=== PATIENT | male | born 1950 | race Caucasian/White ===

== ENCOUNTER → 2018-08-19 10:05 | Outpatient (CLI) | payer MEDICARE, OTHER, SELFPAY ==
[2018-08-19 11:47] LABS: Add Manual Diff / Slide Review NO; Basophils Percent Auto 1.2 % (0-2); Eosinophils Percent Auto 2.7 % (2-4); Hematocrit 44.6 % (41-53); Hemoglobin 15.4 g/dL (13.5-17.5); Lymphocytes Percent Auto 27.2 % (25-40); Mean Corpuscular HGB Conc 34.4 % (30-36); Mean Corpuscular Hemoglobin 31.6 PG (26-34); Mean Corpuscular Volume 91.7 fL (80-100); Monocytes Percent Auto 8.2 % (3-14); Neutrophils Absolute Auto 3100 /uL (3000-5900); Neutrophils Percent Auto 60.7 % (50-75); Platelet Count 304 X10^3/uL (150-400); Red Blood Cell Count 4.87 X10^6/uL (4.5-5.9); Red Cell Distribution Width 12.9 % (11.6-14.8); White Blood Cell Count 5.1 X10^3/uL (4.5-11.0)
[2018-08-19 12:26] LABS: HEMOLYSIS < 15 (0-50)
[2018-08-19 12:35] LABS: Alanine Aminotransferase 27 IU/L (21-72); Albumin 4.4 g/dL (3.5-5.0); Albumin Globulin Ratio 1.6 (1.0-2.8); Alkaline Phosphatase 66 U/L (38-126); Aspartate Aminotransferase 26 IU/L (17-59); BUN Creatinine Ratio 16.3 (6-22); Bilirubin Total 1.1 mg/dL (0.2-1.3); Blood Urea Nitrogen 13 mg/dL (9-20); Calcium 8.7 mg/dL (8.4-10.2); Carbon Dioxide 30 mmol/L (22-32); Chloride 101 mmol/L (98-107); Cholesterol 142 mg/dL (140-199); Estimated Glomerular Filt Rate > 60.0 mL/min (>60); Globulin 2.7 g/dL (1.7-4.1); Glucose 98 mg/dL (80-110); HDL Cholesterol 47 mg/dL (40-60); LDL Cholesterol Calculated 84 mg/dL (<100); Potassium 4.2 mmol/L (3.4-5.1); Sodium 140 mmol/L (137-145); Total Protein 7.1 g/dL (6.3-8.2); Triglycerides 57 mg/dL (35-150)
[2018-08-19 13:07] LABS: TSH w/ Reflex to FT4 1.92 uIU/mL (0.47-4.68)
[2018-08-19 19:16] LABS: Prostate Specific Antigen Scrn 0.846 ng/mL (0.1-4.0)
== END ==
PROVIDERS: PCP Family Medicine; Visit Provider Family Medicine
DX: E78.2 Mixed hyperlipidemia (principal); I10 Essential (primary) hypertension; Z12.5 Encounter for screening for malignant neoplasm of prostate
CPT/HCPCS: 36415; 80053; 80061; 84443; 85025; G0103

== ENCOUNTER → 2019-09-04 06:55 | Outpatient (CLI) | payer MEDICARE, OTHER, SELFPAY ==
[2019-09-04 08:02] LABS: Add Manual Diff / Slide Review NO; Basophils Absolute Auto 100 /uL (0-100); Basophils Percent Auto 1.1 % (0-2); Eosinophils Absolute Auto 200 /uL (0-450); Eosinophils Percent Auto 3.7 % (2-4); Hematocrit 44.1 % (41-53); Hemoglobin 15.1 g/dL (13.5-17.5); Lymphocytes Absolute Auto 1500 /uL (1100-4500); Lymphocytes Percent Auto 30.4 % (25-40); Mean Corpuscular HGB Conc 34.2 % (30-36); Mean Corpuscular Hemoglobin 31.3 PG (26-34); Mean Corpuscular Volume 91.5 fL (80-100); Monocytes Absolute Auto 400 /uL (0-900); Monocytes Percent Auto 7.6 % (3-14); Neutrophils Absolute Auto 2700 /uL (1500-7000); Neutrophils Percent Auto 57.2 % (50-75); Platelet Count 320 X10^3/uL (150-400); Red Blood Cell Count 4.82 X10^6/uL (4.5-5.9); White Blood Cell Count 4.8 X10^3/uL (4.5-11.0)
[2019-09-04 08:20] LABS: Alanine Aminotransferase 28 IU/L (<50); Albumin 4.4 g/dL (3.5-5.0); Albumin Globulin Ratio 1.7 (1.0-2.8); Alkaline Phosphatase 73 U/L (38-126); Aspartate Aminotransferase 32 IU/L (17-59); BUN Creatinine Ratio 12.2 (6-22); Bilirubin Total 1.3 mg/dL (0.2-1.3); Blood Urea Nitrogen 11 mg/dL (9-20); Calcium 9.2 mg/dL (8.4-10.2); Carbon Dioxide 29 mmol/L (22-32); Chloride 104 mmol/L (98-107); Cholesterol 147 mg/dL (140-199); Estimated Glomerular Filt Rate > 60.0 mL/min (>60); Globulin 2.6 g/dL (1.7-4.1); Glucose 112 mg/dL (80-110); HDL Cholesterol 48 mg/dL (40-60); HEMOLYSIS < 15 (0-50); LDL Cholesterol Calculated 80 mg/dL (<100); Sodium 141 mmol/L (137-145); Triglycerides 94 mg/dL (35-150)
[2019-09-04 08:50] LABS: Prostate Specific Antigen Scrn 1.16 ng/mL (0.1-4.0)
== END ==
PROVIDERS: PCP Family Medicine; Visit Provider Family Medicine
DX: Z12.5 Encounter for screening for malignant neoplasm of prostate (principal); E78.2 Mixed hyperlipidemia; I10 Essential (primary) hypertension
CPT/HCPCS: 36415; 80053; 80061; 84443; 85025; G0103

== ENCOUNTER → 2021-01-22 08:02 | Outpatient (CLI) | payer MEDICARE, OTHER, SELFPAY ==
[2021-01-22 10:01] LABS: Add Manual Diff / Slide Review NO; Basophils Absolute Auto 100 /uL (0-100); Basophils Percent Auto 1.1 % (0-2); Eosinophils Absolute Auto 200 /uL (0-450); Eosinophils Percent Auto 4.1 % (2-4); Hematocrit 40.5 % (41-53); Hemoglobin 14.1 g/dL (13.5-17.5); Lymphocytes Absolute Auto 1300 /uL (1100-4500); Lymphocytes Percent Auto 28.5 % (25-40); Mean Corpuscular HGB Conc 34.8 % (30-36); Mean Corpuscular Hemoglobin 31.5 PG (26-34); Mean Corpuscular Volume 90.6 fL (80-100); Monocytes Absolute Auto 400 /uL (0-900); Monocytes Percent Auto 7.7 % (3-14); Neutrophils Absolute Auto 2700 /uL (1500-7000); Neutrophils Percent Auto 58.6 % (50-75); Platelet Count 266 X10^3/uL (150-400); Red Blood Cell Count 4.48 X10^6/uL (4.5-5.9); White Blood Cell Count 4.6 X10^3/uL (4.5-11.0)
[2021-01-22 10:13] LABS: Alanine Aminotransferase 18 IU/L (<50); Albumin 3.7 g/dL (3.5-5.0); Albumin Globulin Ratio 1.5 (1.0-2.8); Alkaline Phosphatase 68 U/L (38-126); Aspartate Aminotransferase 26 IU/L (17-59); BUN Creatinine Ratio 18.4 (6-22); Bilirubin Total 0.7 mg/dL (0.2-1.3); Blood Urea Nitrogen 14 mg/dL (9-20); Calcium 9.1 mg/dL (8.4-10.2); Carbon Dioxide 26 mmol/L (22-32); Chloride 104 mmol/L (98-107); Cholesterol 134 mg/dL (140-199); Estimated Glomerular Filt Rate > 60.0 mL/min (>60); Globulin 2.5 g/dL (1.7-4.1); Glucose 99 mg/dL (80-110); HDL Cholesterol 58 mg/dL (40-60); HEMOLYSIS < 15 (0-50); LDL Cholesterol Calculated 67 mg/dL (<100); Potassium 4.3 mmol/L (3.4-5.1); Sodium 137 mmol/L (137-145); Total Protein 6.2 g/dL (6.3-8.2); Triglycerides 47 mg/dL (35-150)
[2021-01-22 10:43] LABS: Prostate Specific Antigen 1.48 ng/mL (0.10-4.00); TSH w/ Reflex to FT4 1.75 uIU/mL (0.47-4.68)
== END ==
PROVIDERS: PCP Family Medicine; Referring Provider Family Medicine; Visit Provider Family Medicine
DX: E78.2 Mixed hyperlipidemia (principal); I10 Essential (primary) hypertension
CPT/HCPCS: 36415; 80053; 80061; 84153; 84443; 85025

== ENCOUNTER → 2022-07-10 08:35 | Outpatient (CLI) | payer MEDICARE, OTHER, SELFPAY ==
[2022-07-10 09:45] LABS: Add Manual Diff / Slide Review NO; Basophils Absolute Auto 0 /uL (0-100); Basophils Percent Auto 1.1 % (0-2); Eosinophils Absolute Auto 100 /uL (0-450); Eosinophils Percent Auto 3.6 % (2-4); Hematocrit 41.4 % (41-53); Hemoglobin 14.7 g/dL (13.5-17.5); Lymphocytes Absolute Auto 1000 /uL (1100-4500); Lymphocytes Percent Auto 26.3 % (25-40); Mean Corpuscular HGB Conc 35.6 % (30-36); Mean Corpuscular Hemoglobin 31.5 PG (26-34); Mean Corpuscular Volume 88.6 fL (80-100); Monocytes Absolute Auto 300 /uL (0-900); Neutrophils Absolute Auto 2400 /uL (1500-7000); Platelet Count 322 X10^3/uL (150-400); Red Blood Cell Count 4.68 X10^6/uL (4.5-5.9); Red Cell Distribution Width 13.2 % (11.6-14.8)
[2022-07-10 11:02] LABS: Alanine Aminotransferase 15 IU/L (<50); Albumin 4.3 g/dL (3.5-5.0); Albumin Globulin Ratio 1.6 (1.0-2.8); Alkaline Phosphatase 71 U/L (38-126); Aspartate Aminotransferase 22 IU/L (17-59); BUN Creatinine Ratio 16.5 (6-22); Blood Urea Nitrogen 13 mg/dL (9-20); Calcium 9.2 mg/dL (8.4-10.2); Carbon Dioxide 30 mmol/L (22-32); Chloride 100 mmol/L (98-107); Cholesterol 185 mg/dL (140-199); Estimated Glomerular Filt Rate > 60 mL/min (>60); Globulin 2.7 g/dL (1.7-4.1); Glucose 102 mg/dL (80-110); HDL Cholesterol 49 mg/dL (40-60); HEMOLYSIS < 15 (0-50); LDL Cholesterol Calculated 122 mg/dL (<100); Potassium 4.6 mmol/L (3.4-5.1); Sodium 138 mmol/L (137-145); Triglycerides 72 mg/dL (35-150)
[2022-07-10 11:29] LABS: Prostate Specific Antigen Scrn 1.54 ng/mL (0.1-4.0)
[2022-07-10 11:43] LABS: TSH w/ Reflex to FT4 1.55 uIU/mL (0.47-4.68)
== END ==
PROVIDERS: PCP Family Medicine; Referring Provider Family Medicine; Visit Provider Family Medicine
DX: E78.2 Mixed hyperlipidemia (principal); I10 Essential (primary) hypertension; Z12.5 Encounter for screening for malignant neoplasm of prostate
CPT/HCPCS: 36415; 80053; 80061; 81241; 84443; 85025; G0103

== ENCOUNTER → 2022-07-20 09:43 | Outpatient (CLI) | payer MEDICARE, OTHER, SELFPAY ==
[2022-07-20 12:14] LABS: COVID19 -Nasal RAPID Negative (Negative)
== END ==
PROVIDERS: PCP Family Medicine; Visit Provider Surgery
DX: Z20.822 Contact with and (suspected) exposure to COVID-19 (principal); Z01.812 Encounter for preprocedural laboratory examination
CPT/HCPCS: 87635; C9803

== ENCOUNTER 2022-07-21 09:48 | Day surgery (SDC) | payer MEDICARE, OTHER, SELFPAY ==
--- NOTE | 2022-07-21 | PATH_ITS ---
[facility] Accession Number: [id number] No. of containers..02 Tissue . 01 Material submitted: . PART A: cecum - CECAL POLYPS X2 PART B: colon - ASCENDING COLON POLYP . 01 Diagnosis: A. Cecum, Polyps x2, Biopsy: Tubular adenoma. Sessile serrated adenoma. . B. Ascending Colon, Polyp, Biopsy: Tubular adenoma in two of four fragments. Sessile serrated adenoma, one fragment. MRV 07/26/2022 1040 Local . 01 Electronically signed: . Yoli Hayes MD, Pathologist NPI- [id number] . 01 Gross description: . Part A: CECAL POLYPS X2: Received in formalin are 2 fragment(s) of story, soft tissue measuring 0.1 x 0.1 x 0.1 cm to 0.2 x 0.2 x 0.2 cm submitted entirely in 1 cassette(s) Part B: ASCENDING COLON POLYP: Received in formalin are 3 fragment(s) of story, soft tissue measuring 0.3 x 0.3 x 0.2 cm to 0.4 x 0.4 x 0.2 cm submitted entirely in 1 cassette(s) /ELISA 07/24/2022 1838 Local . 01 Pathologist provided ICD-10: D12.0, D12.6 . 01 CPT . 242920, 980501 Specimen Comment: A courtesy copy of this report has been sent to [facility] Performed at: 01 [facility] [address] [place] [id number] MD Loy Wakefield MD Phone: [phone]
[2022-07-21 10:15] VITALS: BP 146/80; PULSE 71; RESP 16; TEMP 36.3; O2SAT 99; BMI 24.6
[2022-07-21] MEDS: LACTATED RINGERS 1,000 ML 42 ML IV (10:40)
--- NOTE | 2022-07-21 11:20 | PM.HP.1 ---
History of Present Illness History of Present Illness Chief complaint: SCREENING COLONOSCOPY W/POSS BX Narrative: Mr. Valentine presents for screening colonoscopy he had a scope here 5 years ago there was a benign polyp and they were recommending 5 year follow-up for that. Since then he has had no bleeding no diarrhea constipation. He has no family history of colon cancer has never had trouble with anesthesia. He did have hemorrhoid banding following his last colonoscoped and that went well he has not had any symptoms of bleeding or protruding from his hemorrhoids since the procedure. He is allergic to penicillin unsure of the reaction but has been lifting that since he was trialed. He had an appendectomy in 2002 overall the prep went well Patient History Medical History (Updated 07/21/22 @ 11:30 by Elena Parry MD) Chicken pox Hemorrhoid (~1970) Hyperlipidemia Hypertension (~2004) Rosacea Surgical History Anesthesia History of elbow surgery (~1967) History of mandibular surgery (~1964) History of vasectomy Status post appendectomy (~2003) Family & Social History Family History (Updated 07/28/15 @ 00:00 by Conversion Provider) Brother Age: 67 Hypertension Mental health problem Father Congestive heart failure Hypertension Mother Stroke Brother No problems noted. Social History: household members spouse Tobacco & Substance use: Tobacco type cigarettes Smoking Status Former smoker alcohol intake current alcohol intake frequency holiday/special occasion Substance Use Type does not use Meds Home Medications and Allergies Home Medications Medication Instructions Recorded Confirmed Type ASPIRIN (Aspirin) 81 mg PO ##0 10/12/11 12/16/21 History Coenzyme Q10 (#CO Q10) 30 mg PO ##0 10/12/11 12/16/21 History minoxidil 2.5 mg tablet 2.5 mg PO DAILY #30 tabs 05/25/22 07/21/22 Rx atorvastatin 20 mg tablet See Rx Instructions .Route 05/29/22 07/21/22 Rx .COMPLEX #90 tabs hydrochlorothiazide 12.5 mg tablet See Rx Instructions .Route 05/29/22 07/21/22 Rx .COMPLEX #90 tabs losartan 50 mg tablet See Rx Instructions .Route 05/29/22 07/21/22 Rx .COMPLEX #180 tabs tadalafil 20 mg tablet See Rx Instructions .Route 05/29/22 07/21/22 Rx .COMPLEX #10 tabs sodium,potassium,mag sulfates 17.5 See Rx Instructions PO .COMPLEX 07/06/22 Rx gram-3.13 gram-1.6 gram oral soln #354 mL (Suprep Bowel Prep Kit) Allergies Allergy/AdvReac Type Severity Reaction Status Date / Time adhesive tape [ADHESIVE TAPE] Allergy Mild skin Verified 07/21/22 10:06 blistering lisinopril [LISINOPRIL] Allergy Mild cough Verified 07/21/22 10:06 Penicillins [PENICILLINS] Allergy Mild childhood Verified 07/21/22 10:06 Exam Vital Signs (past 8 hours): - 07/21/22 10:15 Temperature 97.4 F L Pulse Rate 71 Respiratory Rate 16 Blood Pressure 146/80 H Pulse Oximetry 99 Oxygen Delivery Method Room Air Oxygen Delivery Method Room Air Const General: cooperative, healthy appearing and comfortable HENMT Head: normal to inspection Resp Effort & Inspection: normal respiratory effort and able to speak in complete sentences Cardio Pulses: radial pulses present GI Inspection: normal to inspection and scar (Right lower quadrant) Palpation: No tender Skin General: no rashes or lesions noted Extrem General: normal to inspection Assessment & Plan Assessment and plan (1) Colon cancer screening: Status: Acute Plan I discussed the risks benefits and alternatives of a screening colonoscopy patient fully understood had an opportunity to ask questions and would like to proceed. Time Spent With Patient Critical Care time: I spent a total of [] minutes of critical care time on this patient's care today; this time is exclusive of procedural time.
[2022-07-21] MEDS: MIDAZOLAM 5 MG/5 ML VIAL 10 MG IV (12:08)
[2022-07-21] MEDS: fentaNYL 100 MCG/2 ML INJ 200 MCG IV (12:08)
[2022-07-21] MEDS: MIDAZOLAM 5 MG/5 ML VIAL 2 MG IV (12:25)
--- NOTE | 2022-07-21 12:47 | PM.OP.COLON ---
Procedure & Clinicians Study performed: Colonoscopy and polypectomy Same procedure as scheduled: Yes Indications: Colon cancer screening Surgeon: Elena Parry Procedure Notes Procedure in detail: Patient was taken to the endoscopy room and placed in a left lateral decubitus position. Time-out was performed. Digital rectal exam and external rectal exam were normal. A total of 10 mg of Versed and 200 of fentanyl were given during the procedure for conscious sedation. The patient had a very long colon and advancing it into the cecum took some extra time. Photograph was taken of the appendiceal orifice. In addition there were 2 very small less than 1 cm polyps around the appendiceal orifice which were biopsied. On withdrawal there was a 3rd larger maybe 1 cm sized polyp that was removed with a snare in the ascending colon. Therefore 2 specimens were sent 1. Cecal polyps x2 and 2. Ascending colon polyp. The withdrawal time total was 40 minutes because of the 2 polypectomies. There were no other pathology seen and no internal hemorrhoids on retroflexion. Complications: none Post-procedure Recommendations: Colonoscopy in 3 years
[2022-07-21 12:52] VITALS: BP 110/77; PULSE 67; RESP 16; TEMP 36.4; O2SAT 98
[2022-07-21 12:57] VITALS: BP 113/83; PULSE 67; RESP 13; O2SAT 98
[2022-07-21 13:02] VITALS: BP 116/83; PULSE 64; RESP 15; O2SAT 98
[2022-07-21 13:07] VITALS: BP 120/81; PULSE 18; RESP 15; O2SAT 98
== END 2022-07-21 13:42 | disposition home or self-care (01) ==
PROVIDERS: PCP Family Medicine; Referring Provider Surgery; Visit Provider Surgery
PROC: 0DJD8ZZ Inspection of Lower Intestinal Tract, Via Natural or Artificial Opening Endoscopic (ICD-10-PCS; CPT 45378; principal; 2022-07-21 10:45)
DX: Z12.11 Encounter for screening for malignant neoplasm of colon (principal); Z86.010 Personal history of colon polyps; D12.0 Benign neoplasm of cecum; D12.2 Benign neoplasm of ascending colon
CPT/HCPCS: 45385; 45380; J2250; J3010

== ENCOUNTER → 2023-08-11 08:25 | Outpatient (CLI) | payer MEDICARE, OTHER, SELFPAY ==
[2023-08-11 08:43] LABS: Add Manual Diff / Slide Review NO; Basophils Absolute Auto 100 /uL (0-100); Basophils Percent Auto 1.2 % (0-2); Eosinophils Absolute Auto 100 /uL (0-450); Eosinophils Percent Auto 2.4 % (2-4); Hematocrit 43.7 % (41-53); Hemoglobin 15.3 g/dL (13.5-17.5); Lymphocytes Absolute Auto 1500 /uL (1100-4500); Lymphocytes Percent Auto 29.1 % (25-40); Mean Corpuscular Hemoglobin 30.6 PG (26-34); Mean Corpuscular Volume 87.4 fL (80-100); Monocytes Absolute Auto 500 /uL (0-900); Monocytes Percent Auto 8.5 % (3-14); Neutrophils Absolute Auto 3100 /uL (1500-7000); Neutrophils Percent Auto 58.8 % (50-75); Platelet Count 356 X10^3/uL (150-400); Red Cell Distribution Width 13.2 % (11.6-14.8); White Blood Cell Count 5.3 X10^3/uL (4.5-11.0)
[2023-08-11 09:02] LABS: Alanine Aminotransferase 24 IU/L (<50); Albumin 4.1 g/dL (3.5-5.0); Albumin Globulin Ratio 1.5 (1.0-2.8); Alkaline Phosphatase 58 U/L (38-126); Aspartate Aminotransferase 26 IU/L (17-59); BUN Creatinine Ratio 15.3 (6-22); Bilirubin Total 1.1 mg/dL (0.2-1.3); Blood Urea Nitrogen 13 mg/dL (9-20); Calcium 9.5 mg/dL (8.4-10.2); Carbon Dioxide 29 mmol/L (22-32); Chloride 96 mmol/L (98-107); Cholesterol 151 mg/dL (140-199); Estimated Glomerular Filt Rate > 60 mL/min (>60); Globulin 2.7 g/dL (1.7-4.1); Glucose 109 mg/dL (80-110); HDL Cholesterol 51 mg/dL (40-60); HEMOLYSIS < 15 (0-50); LDL Cholesterol Calculated 85 mg/dL (<100); Potassium 3.9 mmol/L (3.4-5.1); Sodium 133 mmol/L (137-145); Total Protein 6.8 g/dL (6.3-8.2); Triglycerides 73 mg/dL (35-150)
[2023-08-11 09:31] LABS: Prostate Specific Antigen 1.79 ng/mL (0.10-4.00)
[2023-08-11 10:20] LABS: TSH w/ Reflex to FT4 1.46 uIU/mL (0.47-4.68)
== END ==
PROVIDERS: PCP Family Medicine; Referring Provider Family Medicine; Visit Provider Family Medicine
DX: E78.2 Mixed hyperlipidemia (principal); R35.1 Nocturia; I10 Essential (primary) hypertension
CPT/HCPCS: 36415; 80053; 80061; 84153; 84443; 85025

== ENCOUNTER → 2024-03-27 16:37 | Outpatient (CLI) | payer MEDICARE, OTHER, SELFPAY ==
--- NOTE | 2024-03-27 16:39 | DI.RAD.S_ITS ---
PROCEDURE: XR HIP W PEL IF DONE RT 2V INDICATIONS: pain TECHNIQUE: 2 views of the hip were acquired. COMPARISON: None. FINDINGS: Bones: No fractures or dislocations. No suspicious bony lesions. The visualized pelvic ring appears intact. Bilateral moderate acetabular joint space narrowing with subchondral sclerosis. Femoral head maintains an appropriate contour. Soft tissues: No suspicious soft tissue calcifications or masses. IMPRESSION: [id number] bilateral hip osteoarthritis. Approved by: Jalil Suh M.D. on 03/28/2024 at 18:25
--- NOTE | 2024-03-27 16:39 | DI.RAD.S_ITS ---
PROCEDURE: XR LUMBAR SPINE 2-3V INDICATIONS: pain TECHNIQUE: 3 views of the lumbar spine were acquired. COMPARISON: None. FINDINGS: Bones: 5 [id number] vertebrae are present. There is normal bony alignment. No vertebral body compression fractures. No suspicious bony lesions. Lower lumbar spine disc space narrowing with hypertrophic facet joints present. Mild convex right scoliotic curvature. Moderate fecal debris throughout the colon. Atherosclerotic calcification in the abdominal aorta without evidence of aneurysm Soft tissues: Overlying bowel gas pattern is normal. No suspicious soft tissue calcifications. IMPRESSION: Degenerative disc disease and arthropathy in the lower lumbar spine Approved by: Jalil Suh M.D. on 03/28/2024 at 18:23
--- NOTE | 2024-03-27 16:39 | DI.RAD.S_ITS ---
PROCEDURE: XR KNEE LT 3V INDICATIONS: pain TECHNIQUE: 3 views of the knee were acquired. COMPARISON: None. FINDINGS: Bones: No fractures or dislocations. No suspicious bony lesions. Patellar superior enthesophytes noted. Soft tissues: No joint effusion. No suspicious soft tissue calcifications. IMPRESSION: Degenerative patellar enthesophyte Approved by: Jalil Suh M.D. on 03/28/2024 at 18:22
== END ==
PROVIDERS: PCP Family Medicine; Referring Provider Family Medicine; Visit Provider Family Medicine
DX: M51.36 Other intervertebral disc degeneration, lumbar region (principal); M47.816 Spondylosis without myelopathy or radiculopathy, lumbar region; M16.0 Bilateral primary osteoarthritis of hip; M77.8 Other enthesopathies, not elsewhere classified; M25.551 Pain in right hip; M25.562 Pain in left knee; M54.50 Low back pain, unspecified
CPT/HCPCS: 72100; 73502; 73562

== ENCOUNTER → 2024-03-31 13:27 | Outpatient (CLI) | payer MEDICARE, OTHER, SELFPAY ==
[2024-03-31 14:29] LABS: BUN Creatinine Ratio 17.6 (6-22); Blood Urea Nitrogen 12 mg/dL (9-20); Estimated Glomerular Filt Rate > 60 mL/min (>60)
== END ==
PROVIDERS: PCP Family Medicine; Referring Provider Family Medicine; Visit Provider Family Medicine
DX: E78.5 Hyperlipidemia, unspecified (principal); I10 Essential (primary) hypertension; Z13.220 Encounter for screening for lipoid disorders
CPT/HCPCS: 36415; 82565; 84520

== ENCOUNTER → 2024-09-27 07:40 | Outpatient (CLI) | payer MEDICARE, OTHER, SELFPAY ==
[2024-09-27 09:02] LABS: Add Manual Diff / Slide Review NO; Basophils Absolute Auto 100 /uL (0-100); Basophils Percent Auto 1.5 % (0-2); Eosinophils Absolute Auto 300 /uL (0-450); Eosinophils Percent Auto 5.3 % (2-4); Hematocrit 42.5 % (41-53); Hemoglobin 14.9 g/dL (13.5-17.5); Lymphocytes Absolute Auto 1500 /uL (1100-4500); Lymphocytes Percent Auto 28.2 % (25-40); Mean Corpuscular Hemoglobin 31.2 PG (26-34); Monocytes Absolute Auto 400 /uL (0-900); Monocytes Percent Auto 7.2 % (3-14); Neutrophils Absolute Auto 3000 /uL (1500-7000); Neutrophils Percent Auto 57.8 % (50-75); Platelet Count 328 X10^3/uL (150-400); Red Blood Cell Count 4.77 X10^6/uL (4.5-5.9); Red Cell Distribution Width 13.2 % (11.6-14.8); White Blood Cell Count 5.2 X10^3/uL (4.5-11.0)
[2024-09-27 09:11] LABS: Hemoglobin A1C% w Est Avg Glu 5.5 % (4.0-6.0)
[2024-09-27 09:14] LABS: Alanine Aminotransferase 26 IU/L (<50); Albumin 4.1 g/dL (3.5-5.0); Albumin Globulin Ratio 1.8 (1.0-2.8); Alkaline Phosphatase 66 U/L (38-126); Aspartate Aminotransferase 31 IU/L (17-59); BUN Creatinine Ratio 17.6 (6-22); Bilirubin Total 0.8 mg/dL (0.2-1.3); Blood Urea Nitrogen 15 mg/dL (9-20); Calcium 9.3 mg/dL (8.4-10.2); Carbon Dioxide 31 mmol/L (22-32); Chloride 97 mmol/L (98-107); Cholesterol 159 mg/dL (140-199); Estimated Glomerular Filt Rate > 60 mL/min (>60); Globulin 2.3 g/dL (1.7-4.1); Glucose 105 mg/dL (80-110); HDL Cholesterol 63 mg/dL (40-60); HEMOLYSIS < 15 (0-50); LDL Cholesterol Calculated 81 mg/dL (<100); Potassium 4.3 mmol/L (3.4-5.1); Sodium 132 mmol/L (137-145); Total Protein 6.4 g/dL (6.3-8.2); Triglycerides 73 mg/dL (35-150)
[2024-09-27 09:32] LABS: Vitamin D 25 Hydroxy (D3) 49.5 ng/mL (30.0-100.0)
[2024-09-27 09:45] LABS: TSH w/ Reflex to FT4 2.13 uIU/mL (0.47-4.68)
[2024-09-27 09:46] LABS: Testosterone 369 ng/dL (71.8-623)
[2024-09-30 07:39] LABS: Cholesterol, Total 159 mg/dL (100-199); HDL-Cholesterol 62 mg/dL (>39); HDL-Particle (Total) 31.8 umol/L (>=30.5); LDL Particle 956 nmol/L (<1000); LDL Size 21.1 nm (>20.5); LDL-Cholsterol 83 mg/dL (0-99); LP-IR Score <25 (<=45); Small LDL- Particle 211 nmol/L (<=527); Triglycerides 73 mg/dL (0-149)
== END ==
PROVIDERS: PCP Family Medicine; Referring Provider Family Medicine; Visit Provider Family Medicine
DX: E78.2 Mixed hyperlipidemia (principal); I10 Essential (primary) hypertension; M85.89 Other specified disorders of bone density and structure, multiple sites; Z13.21 Encounter for screening for nutritional disorder; Z12.5 Encounter for screening for malignant neoplasm of prostate; Z13.1 Encounter for screening for diabetes mellitus
CPT/HCPCS: 36415; 80053; 80061; 82306; 83036; 83704; 84153; 84403; 84443; 85025; G0103

== ENCOUNTER → 2024-10-16 12:49 | Outpatient (CLI) | payer MEDICARE, OTHER, SELFPAY ==
--- NOTE | 2024-10-16 12:54 | DI.RAD.S_ITS ---
PROCEDURE: XR DEXA AXIAL SKELETON INDICATIONS: ostopenia COMPARISON: None. FINDINGS: Lumbar Spine (L1 excluded due to increased density): Bone mineral density 1.514 g/cm2, T score 4, normal. Left Hip: Bone mineral density 1.149 g/cm2, T score 1.7, normal. Left Femoral Neck: Bone mineral density 0.876 g/cm2, T score 0.2, normal. Fracture Risk Calculation (when applicable): Not reported due to normal bone mineral density. (T score greater or equal to -1.0 to: NORMAL) (T score from -1.1 to -2.4: OSTEOPENIA) (T score less than or equal to -2.5: OSTEOPOROSIS) IMPRESSION: Normal bone mineral density. Follow-up guidelines as follows: Osteoporosis: Consider a repeat DEXA and Vertebral Fracture Assessment (VFA) exam in 2 years or sooner if medically necessary, to reassess this patient's status. Osteopenia: Consider a repeat DEXA in 2-3 years to reassess this patient's status, or if there is a new clinical indication. Normal: Consider a repeat DEXA in 5 years or sooner, or if there is a new clinical indication. All treatment decisions require clinical judgment and consideration of individual patient factors, including patient preferences, comorbidities, previous drug use, risk factors not captured in the FRAX model (e.g., frailty, falls, vitamin D deficiency, increased bone turnover, interval significant decline in bone density ) and possible under- or over-estimation of fracture risk by FRAX. In addition, the NOF Guide recommends that FDA-approved medical therapies be considered in postmenopausal women and men age >= 50 years with a: * Hip or vertebral (clinical or morphometric) fracture * T-score of <=-2.5 at the spine or hip * Ten-year fracture probability by FRAX of >= 3% for hip fracture or >=20% for major osteoporotic fracture. People with diagnosed cases of osteoporosis or at high risk for fracture should have regular bone mineral density tests. For patients eligible for Medicare, routine testing is allowed once every 2 years. The testing frequency can be increased to one year for patients who have rapidly progressing disease, those who are receiving or discontinuing medical therapy to restore bone mass, or have additional risk factors. Dictated by: Trevor Sanchez M.D. on 10/16/2024 at 14:51 Approved by: Trevor Sanchez M.D. on 10/16/2024 at 14:53
--- NOTE | 2024-10-16 12:54 | DI.ECHO.S_ITS ---
[facility] : : [address] : : [place] : : [id number] : : Phone: [phone] Echocardiogram Report + + :Name: MARYLU GAMINO Study Date: 10/16/2024 Height: 75 in : :[facility] ReadingLocation: Weight: 210 lb : : Gender: Male BSA: 2.2 m2 : :: 1950 Age: 74 yrs BP: 148/86 mmHg: :Reason For Study: HYPERTENSION : :Ordering Physician: [place], : :ARON Performed By: Aron Oliva : :Referring: ARON DELAROSA : + + Interpretation Summary The left ventricle is normal in size. The left ventricular ejection fraction is normal. The ejection fraction is estimated to be 60-65%. The right ventricle is normal size. The right ventricular systolic function is normal. No significant valvular pathology seen. The IVC is of normal diameter and collapses greater than 50% with a sniff. This suggests a low right atrial pressure of 3 mm Hg. Procedure: A two-dimensional transthoracic echocardiogram with color flow and Doppler was performed. The study quality was technically good. There is no prior echocardiogram noted for this patient. The patient was in normal sinus rhythm during the exam. Left Ventricle: The left ventricle is normal in size. There is borderline proximal septal thickening noted. There is no echo evidence for significant left ventricular outflow tract obstruction. There is no thrombus. The ejection fraction is estimated to be 60-65%. The left ventricular ejection fraction is normal. There are no focal wall motion abnormalities. Diastolic parameters suggest probable normal left ventricular diastolic function and normal filling pressures. Right Ventricle: The right ventricle is normal size. The right ventricular systolic function is normal. Atria: The left atrium is mildly dilated. Right atrial size is normal. There is no Doppler evidence for an interatrial shunt. Mitral Valve: There is systolic anterior motion of the chordal apparatus. There is trace mitral regurgitation. Aortic Valve: The aortic valve is trileaflet. The aortic valve is slightly calcified. The aortic valve opens well. No aortic regurgitation is present. Tricuspid Valve: The tricuspid valve leaflets are thin and pliable. There is trace tricuspid regurgitation. The right ventricular systolic pressure is estimated to be at least 26 mmHg based on an estimated right atrial pressure of 3 mm Hg. Pulmonic Valve: The pulmonic valve is not well seen, but is grossly normal. There is trace pulmonic regurgitation. Great Vessels: The aortic root is normal size. The ascending aorta is at the upper limits of normal in size. The pulmonary artery is normal size. The IVC is of normal diameter and collapses greater than 50% with a sniff. This suggests a low right atrial pressure of 3 mm Hg. Pericardium/ Pleura There is no pericardial effusion. There is no pleural effusion. MMode/2D Measurements & Calculations LVIDd: 5.6 cm LVOT diam: 2.3 cm LVIDs: 3.7 cm Ao root diam: 3.4 cm FS: 34.5 % asc Aorta Diam: 3.7 cm EPSS: 0.43 cm Ao Arch Diam (Prox Trans): 2.7 cm IVSd: 1.1 cm LVPWd: 0.89 cm LV strickland. diameter/BSA (cm/m^2): 2.5 LV sys. diameter/BSA (cm/m^2): 1.6 LA A2 area: 24.4 cm2 RA long axis: 5.5 cm LA A4 area: 23.4 cm2 RA area: 20.4 cm2 LA length (vol): 5.9 cm RA vol: 64.2 ml LA vol: 82.2 ml RA : 28.6 ml/m2 LA vol index: 36.7 ml/m2 IVC diam: 1.6 cm RVD1 (basal): 4.0 cm RVD2 (mid): 2.9 cm TAPSE: 3.5 cm Doppler Measurements & Calculations Ao V2 max: 139.7 cm/sec LVOT Max Guicho: 106.5 cm/sec Ao V2 mean: 108.6 cm/sec LV V1 max P.5 mmHg Ao max P.8 mmHg LV V1 VTI: 25.6 cm Ao mean P.1 mmHg YOLANDA(I,D): 3.2 cm2 Ao V2 VTI: 33.1 cm YOLANDA(V,D): 3.2 cm2 sev ratio: 0.77 YOLANDA indexed to BSA (cm^2/m^2): 1.4 MV E max guicho: 69.8 cm/sec TR max guicho: 240.6 cm/sec MV A max guicho: 54.1 cm/sec TR max P.1 mmHg MV E/A: 1.3 PA V2 max: 73.5 cm/sec Med Peak E' Guicho: 6.9 cm/sec PA V2 mean: 56.0 cm/sec E/E' med: 10.1 PA mean P.3 mmHg Lat Peak E' Guicho: 7.1 cm/sec PA pr(Accel): 15.6 mmHg E/E' lat: 9.8 E/e' average: 10.0 MV dec time: 0.17 sec SV(OT): 105.9 ml Reading Physician:11:33 AM
== END ==
PROVIDERS: PCP Family Medicine; Referring Provider Family Medicine; Visit Provider Family Medicine
DX: M85.89 Other specified disorders of bone density and structure, multiple sites (principal); I10 Essential (primary) hypertension
CPT/HCPCS: 77080; 93306

== ENCOUNTER → 2025-08-15 07:59 | Outpatient (CLI) | payer MEDICARE, OTHER, SELFPAY ==
[2025-08-15 08:50] LABS: Add Manual Diff / Slide Review NO; Hematocrit 41.0 % (41-53); Hemoglobin 14.2 g/dL (13.5-17.5); Lymphocytes Absolute Auto 1200 /uL (1100-4500); Mean Corpuscular HGB Conc 34.5 % (30-36); Mean Corpuscular Hemoglobin 30.9 PG (26-34); Mean Corpuscular Volume 89.6 fL (80-100); Platelet Count 281 X10^3/uL (150-400)
[2025-08-15 09:03] LABS: Alanine Aminotransferase 21 IU/L (<50); Albumin 3.9 g/dL (3.5-5.0); Albumin Globulin Ratio 1.6 (1.0-2.8); Alkaline Phosphatase 62 U/L (38-126); Blood Urea Nitrogen 14 mg/dL (9-20); Calcium 8.8 mg/dL (8.4-10.2); Carbon Dioxide 28 mmol/L (22-32); Chloride 102 mmol/L (98-107); Cholesterol 132 mg/dL (140-199); Estimated Glomerular Filt Rate > 60 mL/min (>60); Globulin 2.4 g/dL (1.7-4.1); Glucose 110 mg/dL (70-99); HDL Cholesterol 53 mg/dL (40-60); HEMOLYSIS < 15 (0-50); Potassium 4.4 mmol/L (3.4-5.1); Sodium 136 mmol/L (137-145); Total Protein 6.3 g/dL (6.3-8.2); Triglycerides 75 mg/dL (35-150)
[2025-08-15 09:33] LABS: Prostate Specific Antigen 1.95 ng/mL (0.10-4.00)
[2025-08-15 09:34] LABS: TSH w/ Reflex to FT4 2.13 uIU/mL (0.47-4.68)
== END ==
PROVIDERS: PCP Family Medicine; Referring Provider Family Medicine; Visit Provider Family Medicine
DX: E78.2 Mixed hyperlipidemia (principal); I10 Essential (primary) hypertension
CPT/HCPCS: 36415; 80053; 80061; 84153; 84443; 85025

== ENCOUNTER 2025-09-03 06:31 | Day surgery (SDC) | payer MEDICARE, OTHER, SELFPAY ==
[2025-09-01 13:06] VITALS: BMI 26.7
--- NOTE | 2025-09-03 | PATH_ITS ---
[facility] Accession Number: [id number] No. of containers..01 Tissue . 01 Material submitted: . colon - SIGMOID POLYP @ 25CM . 01 Diagnosis: SIGMOID COLON POLYP AT 25 CM: Hyperplastic polyp. MRV 09/08/2025 1532 Local . 01 Electronically signed: . Zaire Felder MD, PhD, Pathologist NPI- [id number] . 01 Gross description: . Received in formalin with two identifiers and sigmoid polyp is a single story to story-brown soft tissue fragment, 0.7 cm in greatest dimension, submitted entirely in A1. ([id number]) /MRV 09/04/2025 1711 Local . 01 Pathologist provided ICD-10: K63.5 . 01 CPT . 017563 Specimen Comment: A courtesy copy of this report has been sent to [facility] Performed at: 01 [facility] [address] [address], [place], [place] [id number] MD Loy Wakefield MD Phone: [phone]
--- NOTE | 2025-09-03 06:23 | PM.HP.IH.1 ---
History of Present Illness History of Present Illness Date Patient Seen: 09/03/25 Chief complaint: Screening Colonoscopy Narrative: 75yo M, h/o tubular adenoma/sessile serrated adenoma. 3yr f/u colonoscopy today. [facility] Medical History (Updated 09/03/25 @ 06:24 by Franko Moses MD) Arthritis Chicken pox Hemorrhoid (~1970) Hypertension (~2004) Hyperlipidemia Rosacea Surgical History (Updated 09/01/25 @ 13:06 by Nany Preciado RN) History of jaw surgery (1964) Anesthesia History of mandibular surgery (~1964) History of elbow surgery (~1967) Status post appendectomy (10/01/02) History of vasectomy Family History Brother Age: 71 Hypertension Mental health problem Father Congestive heart failure Hypertension Mother Stroke Brother No problems noted. Social History (Updated 08/06/25 @ 15:38 by Yolande Fritz LPN) marital status: number of children: 1 household members: spouse lives independently: Yes caregiver/support person: No housing: house pets and animals: No education level: college occupational status: employed current occupational exposures/hazards: No Previous occupational history: Aviation, travel history: recent leisure activities: exercise and reading other: Boating seatbelt use: always water heater temp set < 120 deg: Yes working smoke detector in home: Yes fire extinguisher in home: Yes carbon monox detector in home: Yes firearms in home: Yes firearms unloaded and locked: Yes do you feel safe at home: Yes alcohol intake: former substance use type: does not use during the past year weight has: remained stable well-balanced diet: daily or most days daily servings fruits/ve or more times/day caffeine: Yes eating out: 1-3 times/week Type(s) of exercise: walking, regular exercise and advised to perform resistance training at least 2x/week frequency: 3-4 times per week duration: 30-45 minutes/day Meds Home Medications and Allergies Home Medications ?Medication ?Instructions ?Recorded ?Confirmed ?Type ASPIRIN (Aspirin) 81 mg PO ##0 10/12/11 08/06/25 History Coenzyme Q10 (#CO Q10) 30 mg PO ##0 10/12/11 08/06/25 History atorvastatin 20 mg tablet 20 mg PO QPM #90 tabs 09/01/24 08/06/25 Rx losartan 50 mg tablet 50 mg PO BID #180 tabs 09/01/24 08/06/25 Rx sodium,potassium,mag sulfates 17.5 See Rx Instructions PO .COMPLEX 07/24/25 08/06/25 Rx gram-3.13 gram-1.6 gram oral soln #354 mL (Suprep Bowel Prep Kit) amlodipine 5 mg tablet (Norvasc) 5 mg PO DAILY #90 tabs 08/06/25 08/06/25 Rx tadalafil 20 mg tablet See Rx Instructions .Route 08/24/25 Rx .COMPLEX #10 tabs minoxidil 2.5 mg tablet 2.5 mg PO DAILY #90 tabs 08/25/25 Rx Allergies Allergy/AdvReac Type Severity Reaction Status Date / Time adhesive tape (ADHESIVE TAPE) Allergy Mild skin Verified 08/06/25 15:53 blistering lisinopril (LISINOPRIL) Allergy Mild cough Verified 08/06/25 15:53 Penicillins (PENICILLINS) Allergy Mild childhood Verified 08/06/25 15:53 Exam Narrative Exam Narrative: Const General: healthy appearing, comfortable and no acute distress Orientation: alert and oriented x3 HENMT Ears: hearing grossly normal bilaterally Eyes Visual Marion: normal visual marion by confrontation Conjunctivae: conjunctivae normal Sclera: sclerae normal EOM: EOM intact bilaterally Resp Effort & Inspection: normal respiratory effort and able to speak in complete sentences Cardio Rate: regular rate GI Palpation: soft (NT) Extrem General: no pedal edema and no calf tenderness Assessment & Plan Assessment and plan (1) History of colon polyps: Status: Acute (2) Encounter for screening colonoscopy: Status: Acute Plan Plan colonoscopy, possible biopsy. The risks, benefits and options regarding the procedure were explained to the patient in detail. Risk discussion included but not limited to: bleeding, perforation, unable to reach cecum, missed lesion. The patient was encouraged to ask questions and they were answered to their satisfaction. The patient understands and is agreeable to proceed. Time-Based Coding :: [TOTAL MINUTES] spent with patient and on the chart (including review of chart, obtaining history, exam, reviewing outside data, placing orders, documenting exam and treatment plan, and counseling patient) on [DATE]. PROFEE Graphic Design Intern Document charge(s): Yes Charge Codes Inpatient/observation care including admit and discharge same day: [id number]
[2025-09-03 07:26] VITALS: BP 156/88; PULSE 66; RESP 16; TEMP 36.4; O2SAT 99
[2025-09-03] MEDS: LACTATED RINGERS 1,000 ML 42 ML IV (07:33)
--- NOTE | 2025-09-03 07:34 | P.OP.COLON_ITS ---
Operative Date/Time/Diagnoses Date of procedure: 09/03/25 Time of procedure: 08:11 Pre-op diagnosis: H/O colon polyps Post-op diagnosis: other (sigmoid polyp) Procedure & Clinicians Study performed: Screening colonoscopy with polypectomy Same procedure(s) as scheduled: Yes Indications: 75yo M, h/o colon polyps. Surgeon: Franko Moses Anesthesia Type: MAC +/- Procedure Notes SCOAP/Timeout: Performed Procedure in detail: Colonoscopy Patient placed in left lateral recumbent position. Time out was performed. Procedural sedation was administered by anesthesia. Examination began with a thorough inspection of the perianal area. There was no evidence of fissures, fistulae, external hemorrhoids or cutaneous malignancy. The colonoscope was then placed into the rectum and the lumen was insufflated with carbon dioxide. The scope was carefully advanced forward. Ultimately the cecum was intubated and confirmed by identification of the ileocecal valve, the appendiceal orifice and the confluence of the taenia. The scope was then slowly withdrawn examining the colon thoroughly in all directions. In the rectum, retroflexion of the scope was performed for inspection of the distal rectum and anal canal. ?Significant colonoscopy findings: ?1. Quality of the preparation-good, [place] 2-3, improved with irrigation/rizo ction ?2. Single 3mm sessile, benign appearing, adenomatous appearing polyp at 25cm sigmoid colon, removed by cold snare and retrieved for pathology Scope withdrawal time: 9 minutes Findings: polyp(s) Specimen(s): other (polyp) Estimated Blood Loss: 5 Complications: none Impression: Single adenomatous polyp, pathology pending Post-procedure Recommendations: Colonoscopy in 3 years Plan for aftercare: PACU then home Follow up: as needed Disposition: PACU
[2025-09-03 08:14] VITALS: BP 116/69; PULSE 58; RESP 16; TEMP 36.1; O2SAT 99
[2025-09-03 08:16] VITALS: BP 130/72; PULSE 58; RESP 16; O2SAT 100
[2025-09-03 08:20] VITALS: BP 140/73; PULSE 61; RESP 16; O2SAT 98
== END 2025-09-03 08:25 | disposition home or self-care (01) ==
PROVIDERS: PCP Family Medicine; Referring Provider Surgery; Visit Provider Surgery
PROC: 0DJD8ZZ Inspection of Lower Intestinal Tract, Via Natural or Artificial Opening Endoscopic (ICD-10-PCS; CPT 45378; principal; 2025-09-03 07:45)
DX: Z12.11 Encounter for screening for malignant neoplasm of colon (principal); Z86.0101 Personal history of adenomatous and serrated colon polyps; K63.5 Polyp of colon
CPT/HCPCS: 45385; J2704; J7120